=== PATIENT | female | born 1970 | race Asian ===

== ENCOUNTER 2018-11-03 13:48 | Day surgery (SDC) | payer BC ==
[~2018-11-03] VITALS: Ht 162.6 cm; Wt 69.1 kg
[2018-11-03 14:42] LABS: BASO % 0.2 % (0.0-1.0); EOS # 0.1 10^3/uL (0.0-0.50); EOS % 0.9 % (0.0-3.0); HEMATOCRIT 41.2 % (36.0-47.0); HEMOGLOBIN 14.1 g/dl (12.0-15.5); LYMPH # 2.3 10^3/uL (1.5-4.5); LYMPH % 27.1 % (24.0-44.0); MEAN CORPUSCULAR HEMOGLOBIN 32.1 pg (27.0-33.0); MEAN CORPUSCULAR HGB CONC 34.2 g/dl (32.0-36.5); MEAN CORPUSCULAR VOLUME 93.8 fl (80.0-96.0); MONO # 0.6 10^3/uL (0.0-0.8); MONO % 6.5 % (0.0-5.0); NEUTROPHILS # 5.6 10^3/uL (1.8-7.7); NEUTROPHILS % 65.1 % (36.0-66.0); PLATELET COUNT, AUTOMATED 257 10^3/uL (150-450); RED BLOOD COUNT 4.39 10^6/uL (4.00-5.40); WHITE BLOOD COUNT 8.6 10^3/uL (4.0-10.0)
[2018-11-03] MEDS ORDERED: NS 1,000 ML IV ONE (14:45)
[2018-11-03] MEDS ORDERED: ONDANSETRON 4MG/2ML VIAL (J2405) IV ONE (14:45)
[2018-11-03 15:09] LABS: ALBUMIN 4.2 GM/DL (3.2-5.2); ALT/SGPT 24 U/L (12-78); BILIRUBIN,DIRECT 0.1 MG/DL (0.0-0.2); BILIRUBIN,TOTAL 0.4 MG/DL (0.2-1.0); LIPASE 112 U/L (73-393); TOTAL PROTEIN 7.6 GM/DL (6.4-8.2)
[2018-11-03] MEDS ORDERED: METOCLOPRAMIDE INJ 10MG/2ML VIAL (J2765) IV ONE (15:30)
[2018-11-03] MEDS ORDERED: KETOROLAC 30 MG/ML VIAL (J1885) IV ONE (15:30)
[2018-11-03 15:52] LABS: BLOOD UREA NITROGEN 9 MG/DL (7-18); CALCIUM LEVEL 9.3 MG/DL (8.5-10.1); CARBON DIOXIDE LEVEL 25 MEQ/L (21-32); CHLORIDE LEVEL 105 MEQ/L (98-107); CREATININE FOR GFR 0.76 MG/DL (0.55-1.30); GLOMERULAR FILTRATION RATE > 60.0 (>58); GLUCOSE, FASTING 98 MG/DL (70-100); POTASSIUM SERUM 3.4 MEQ/L (3.5-5.1); SODIUM LEVEL 139 MEQ/L (136-145)
--- NOTE | 2018-11-03 16:41 | REP ---
Clinical: Left pelvic pain. Technique: Transabdominal pelvic ultrasound followed by transvaginal examination for better evaluation of the adnexa with color Doppler evaluation of the ovaries. Findings: Evidence of prior hysterectomy. Left ovary is normal in appearance and vascularity without torsion and measures 3.0 x 2.1 x 2.2 cm (RI 0.57). Right ovary measures 3.1 x 3.1 x 2.7 cm (RI 0.37) and includes 2.3 cm cyst with barely perceptible peripheral flow raising the possibility of early/intermittent torsion. Bladder is grossly normal and measures 8.6 x 6.2 x 4.2 cm. Impression: 1. Prior hysterectomy without pelvic fluid or adnexal mass lesion. 2. Normal left ovary without torsion. 3. The right ovary includes 2.3 cm cyst and demonstrates a very subtle vascularity raising the possibility of early/intermittent torsion, and close clinical observation may be warranted. Electronically Signed by Marco Young MD 11/03/2018 04:32 P
[2018-11-03] MEDS ORDERED: MORPHINE 2 MG/ML 1ML SYRINGE (J2270) IV ONE (17:45)
[2018-11-03] MEDS ORDERED: diphenhydrAMINE INJ 50MG/ML VIAL (J1200) IV ONE (17:45)
[2018-11-03 18:14] LABS: CHLAMYDIA DNA AMPLIFICATION NEGATIVE (NEGATIVE); GC DNA AMPLIFICATION NEGATIVE (NEGATIVE)
[2018-11-03] MEDS ORDERED: BUPIVACAINE HCL 0.25% 30 ML VIAL As Ordered ONE (18:31)
[2018-11-03] MEDS ORDERED: MIDAZOLAM INJ 2 MG/2 ML VIAL (J2250) As Ordered ONE (18:48)
[2018-11-03] MEDS ORDERED: dexameTHASONE 4 MG/ML 1ML VIAL (J1100) As Ordered ONE (18:49)
[2018-11-03] MEDS ORDERED: METOCLOPRAMIDE INJ 10MG/2ML VIAL (J2765) As Ordered ONE (18:49)
[2018-11-03] MEDS ORDERED: SPIR50TA4 PO (18:52)
[2018-11-03] MEDS ORDERED: CYCL10TA PO (18:52)
[2018-11-03] MEDS ORDERED: PROPOFOL 200 MG/20 ML VIAL As Ordered ONE ×2 (18:57→19:03)
[2018-11-03] MEDS ORDERED: LIDOCAINE 2% INJ 100 MG/5 ML SDV (FOR ANES.) As Ordered ONE (19:03)
[2018-11-03] MEDS ORDERED: ROCURONIUM BROMIDE 50 MG/5 ML VIAL As Ordered ONE (19:03)
[2018-11-03] MEDS ORDERED: fentaNYL 100 MCG/2 ML INJECTION (J3010) As Ordered ONE ×2 (19:03→20:09)
[2018-11-03] MEDS ORDERED: ONDANSETRON 4MG/2ML VIAL (J2405) As Ordered ONE (19:03)
[2018-11-03] MEDS ORDERED: ACETAMINOPHEN 1000MG 100ML IV BTL (OFIRMEV) (J0131 PER 10MG) As Ordered ONE (20:09)
[2018-11-03] MEDS ORDERED: SUGAMMADEX SODIUM 500 MG/5 ML VIAL (BRIDION) As Ordered ONE (20:09)
[2018-11-03] MEDS ORDERED: KETOROLAC 60 MG/2 ML VIAL (J1885) As Ordered ONE (20:09)
[2018-11-03] MEDS ORDERED: LR 1,000 ML IV SCH (20:30)
[2018-11-03] MEDS ORDERED: ONDANSETRON 4MG/2ML VIAL (J2405) IV PRN (20:30)
[2018-11-03] MEDS ORDERED: fentaNYL 100 MCG/2 ML INJECTION (J3010) IV PRN (20:30)
[2018-11-03] MEDS ORDERED: MEPERIDINE INJ 25 MG/ML VIAL (J2175) IV PRN (20:30)
[2018-11-03] MEDS ORDERED: HYDROMORPHONE HCL 0.5 MG/ 0.5 ML SYRINGE (J1170 PER 1) IV PRN (20:30)
[2018-11-03] MEDS ORDERED: oxyCODONE 5MG TAB As Ordered ONE (21:06)
[2018-11-03] MEDS: oxyCODONE 5MG TAB PO PRN ×2 (21:10→21:40)
[2018-11-03] MEDS ORDERED: PERCOCET 5MG/325MG TAB PO PRN (21:30)
[2018-11-03 22:00] VITALS: BP 108/57
[2018-11-03] MEDS: LR 1,000 ML IV SCH (22:00)
[2018-11-03 22:30] VITALS: BP 98/56
[2018-11-03 23:30] VITALS: BP 100/57
[2018-11-04 00:30] VITALS: BP 99/51
[2018-11-04 01:30] VITALS: BP 100/57
[2018-11-04] MEDS: KETOROLAC 30 MG/ML VIAL (J1885) IV SCH ×3 (03:48→14:49)
[2018-11-04 04:00] VITALS: BP 96/50
[2018-11-04] MEDS: LR 1,000 ML IV SCH ×2 (05:30→13:30)
[2018-11-04] MEDS: PERCOCET 5MG/325MG TAB PO PRN ×3 (06:02→14:49)
[2018-11-04 08:00] VITALS: BP 91/48
[2018-11-04] MEDS ORDERED: PERCOCET PO (09:59)
[2018-11-04 12:00] VITALS: BP 107/55
[2018-11-04 16:00] VITALS: BP 115/57
--- NOTE | 2018-11-05 06:48 | RO ---
DATE OF PROCEDURE: 11/03/2018 PREOPERATIVE DIAGNOSES: 1. Left ovarian torsion. 2. Acute abdominal pain. POSTOPERATIVE DIAGNOSES: 1. Left ovarian torsion. 2. Acute abdominal pain. PROCEDURE PERFORMED: Diagnostic laparoscopy with left salpingo-oophorectomy. SURGEON: Anjana Washington MD DOCK LOADER: Steve Lyon MD ANESTHESIA: General endotracheal anesthesia. ESTIMATED BLOOD LOSS: 5 mL. INTRAVENOUS FLUIDS: 1 liter Lactated Ringer's solution. URINE OUTPUT: 75 mL. PREOPERATIVE ANTIBIOTICS: None. INFECTION CLASSIFICATION: 1 OPERATIVE FINDINGS: Edematous, necrotic, torsed left ovary, adhered to bowel consistent with ovarian torsion. SPECIMENS: Left fallopian tube and ovary INDICATIONS FOR OPERATION: This patient is a 48-year-old 5, para 3 who presented to the ER with acute onset of left pelvic pain. She reports being awoken from her sleep in excruciating pain and presented to the emergency room. She denied any fever, chills or any other symptoms. Her pain was uncontrolled with morphine and Toradol. She had a pelvic ultrasound that demonstrated a 2 cm right ovarian cyst with decreased blood flow. On her examination, she had an acute abdomen with pain all generated from her left lower quadrant. Based on her clinical picture a decision was made to proceed with a diagnostic operative laparoscopy with concern for a left ovarian torsion. The patient was counseled for the above surgery, reviewed risks as well as benefits of the procedure. DESCRIPTION OF OPERATION: After informed consent was obtained and written consent was reviewed, the patient brought to the operating room where she was placed under general anesthesia. A Mora catheter was then placed and set to gravity. She was then prepped and draped in a normal sterile fashion. The patient remained in a supine position. A time out in the operating room was then performed identifying the patient, procedure to be performed, as well as drug allergies. Attention was then turned to the patient's abdomen where 0.25% Marcaine was infused in the umbilical region. An incision was made in this area and a 5 mm trocar and sleeve was advanced through this incision. The laparoscope was then placed revealing intra-abdominal placement. A pneumoperitoneum was then obtained with CO2 gas. Two additional port sites were placed on each side of the patient's umbilicus. These areas were infused with 0.25% Marcaine. An incision was made in each one of these areas. A 5 mm trocar and sleeve was advanced through the right side incision under direct visualization. An 11 mm trocar was advanced through the left trocar site under direct visualization. The patient's abdomen and pelvis was surveyed revealing a normal appearing right ovary. The left ovary was torsed several times, appeared necrotic and edematous, and also adhered to omentum. Normal posterior cul-de-sac. Using Harmonic Jerzy scalpel device, the left infundibulopelvic ligament was cauterized and ligated with good hemostasis noted. Specimen was further dissected off the omentum using Harmonic Jerzy scalpel device. Good hemostasis noted. Specimen was then placed in the EndoCatch bag and was removed. Surgical sites were inspected and noted to be hemostatic. The fascia of the left port site was closed using George-Chen system with #0 Vicryl. The pneumoperitoneum was then released, trocars removed from port sites. The skin incisions over all three port sites were closed with #3-0 Vicryl and dressed with Dermabond. Mora catheter was removed. The patient was then awakened from general anesthesia and taken to recovery in stable condition. Counts were correct. Dr. Lyon, my surgical instruments inspector, played an essential role during surgery. He assisted with port placement, removal of specimen as well as wound closure.
[2018-11-08] MEDS ORDERED: PERC5TAB12 PO (11:31)
== END 2018-11-04 17:10 | disposition home or self-care (01) ==
LOC: M ED 13:48 → M SDC 18:00 → M PED 22:00 → M SDC 11-04 17:10
PROVIDERS: ATTEND Obstetrics & Gynecology
DX: N83.512 Torsion of left ovary and ovarian pedicle (principal); R10.9 Unspecified abdominal pain; Z91.040 Latex allergy status; Z88.1 Allergy status to other antibiotic agents; Z88.5 Allergy status to narcotic agent; Z79.899 Other long term (current) drug therapy
CPT/HCPCS: 58661; 76830; 76856; 80047; 80048; 80076; 81001; 83690; 85025; 87210; 87661; 88305; 93976; 96374; 96375; 96376; 99284; J0131; J1100; J1200; J1885; J2250; J2270; J2405; J2765; J3010